=== PATIENT | male | born 1985 | race African-American/Black ===

== ENCOUNTER 2024-02-15 20:52 | Emergency (ER) | payer SELFPAY ==
[2024-02-15] MEDS ORDERED: FAMOTIDINE 20 MG TABLET ONE (21:16)
[2024-02-15] MEDS ORDERED: KETOROLAC TROMETHAMINE 30 MG/1 ML VIAL ONE (21:16)
[2024-02-15 21:19] VITALS: PULSE 80; RESP 17; TEMP 98.1; BMI 28.0
[2024-02-15 21:21] LABS: HEMATOCRIT 46.6 % (35.4-49); HEMOGLOBIN 15.2 G/dL (11.7-16.9); MCH 26.7 pg (25.7-33.7); MCHC 32.7 g/dl (32.0-35.9); MEAN CELL VOLUME 81.7 fl (80-96); MEAN PLT VOLUME 7.2 fl (7.5-11.1); RDW 15.1 % (11.9-15.9)
[2024-02-15] MEDS ORDERED: ALPRAZolam 0.25 MG TABLET ONE (21:21)
[2024-02-15 21:28] LABS: PLATELET ESTIMATE ADEQUATE
[2024-02-15 21:44] LABS: ALBUMIN 4.9 g/dl (3.4-5.0); ALK PHOS 74 U/L (45-117); ANION GAP 9 mmol/L (4-13); BILIRUBIN,TOTAL 1.2 mg/dl (0.2-1); CALCIUM 9.4 mg/dl (8.5-10.1); CHLORIDE 101 mmol/L (98-107); CO2 24 mmol/L (21-32); CREATININE 0.9 mg/dl (0.6-1.3); GLUCOSE,RANDOM 100 mg/dl (74-106); POTASSIUM 3.7 mmol/L (3.5-5.1); SGOT/AST 28 U/L (15-37); SGPT/ALT 27 U/L (7-52); SODIUM 134 mmol/L (136-145)
[2024-02-15] MEDS: FAMOTIDINE 20 MG TABLET PO ONE (21:52)
[2024-02-15] MEDS: ALPRAZolam 1 MG TABLET PO ONE (21:53)
[2024-02-15] MEDS: KETOROLAC TROMETHAMINE 30 MG/1 ML VIAL IM ONE (21:53)
[2024-02-15 22:03] VITALS: BP 141/97
== END 2024-02-15 23:32 | disposition home or self-care (01) ==
LOC: FER 20:52
PROC: 3E0233Z Introduction of Anti-inflammatory into Muscle, Percutaneous Approach (ICD-10-PCS; principal; 2024-02-15)
DX: R07.89 Other chest pain (principal); F41.9 Anxiety disorder, unspecified; R45.0 Nervousness
CPT/HCPCS: 36415; 80053; 83735; 84443; 84484; 85027; 93005; 99284-25

== ENCOUNTER 2024-02-25 17:48 | Emergency (ER) | payer OTHER ==
[2024-02-25 18:15] VITALS: BP 147/101; PULSE 78; RESP 18; TEMP 98.3; BMI 25.4
[2024-02-25] MEDS ORDERED: ASPIRIN 81 MG CHEWABLE TABLETS ONE (19:54)
[2024-02-25] MEDS: ASPIRIN 81 MG CHEWABLE TABLETS PO ONE (19:56)
== END 2024-02-25 20:21 | disposition left against medical advice (07) ==
LOC: JER 17:48
DX: R07.89 Other chest pain (principal); I10 Essential (primary) hypertension
CPT/HCPCS: 71046-TC-FY; 93005; 93010; 99284-25

== ENCOUNTER 2024-03-08 02:10 | Emergency (ER) | payer OTHER ==
[2024-03-08] MEDS ORDERED: LORazepam 0.5 MG TABLET ONE (02:25)
[2024-03-08] MEDS: LORazepam 2 MG TABLET PO ONE (02:35)
[2024-03-08 02:39] VITALS: BP 145/100; PULSE 98; RESP 17; TEMP 98.7; BMI 25.8
== END 2024-03-08 03:13 | disposition home or self-care (01) ==
LOC: FER 02:10
DX: F41.0 Panic disorder [episodic paroxysmal anxiety] (principal); R03.0 Elevated blood-pressure reading, without diagnosis of hypertension
CPT/HCPCS: 93005; 93010; 99283-25